=== PATIENT | male | born 1975 | race Caucasian/White ===

== ENCOUNTER 2017-07-14 14:15 | Inpatient (IN) | payer MEDICAID ==
[~2017-07-14] VITALS: Ht 193 cm; Wt 90.3 kg
[2017-07-14 14:25] VITALS: BP 98/58
[2017-07-14] MEDS ORDERED: Pantoprazole Inj IV ONE (14:30)
[2017-07-14] MEDS ORDERED: LORazepam Inj 2mg/ml 1ml IV ONE ×2 (14:30→19:30)
--- NOTE | 2017-07-14 14:31 | Emergency Room Report ---
History of Present Illness General Chief Complaint: General Complaint Source: Patient, EMS Present Illness HPI Patient presents with feeling that is about to seize. He was last sober last year. He drinks every day. His last drink was just before calling paramedics. He's been vomiting. He didn't see any blood. He's also had melanotic stools. He's never had a GI bleed in the past. Been many years since his last seizure. He is worried that he is withdrawing at this time. He has some epigastric pain. It's intermittent and not present at the moment. The patient denies cirrhosis. He also denies suicidal or homicidal ideation. Allergies: Coded Allergies: No Known Allergies (Unverified , 07/14/17) Patient History Past Medical History: see triage record Social History: Reports: smoking, alcohol use Social History Narrative Reviewed Nursing Documentation: PMH: Agreed; PSxH: Agreed Review of Systems All Other Systems: negative except mentioned in HPI Physical Exam Vital Signs Date Time Temp Pulse Resp B/P (MAP) Pulse Ox O2 Delivery O2 Flow Rate FiO2 07/14/17 13:53 98.2 150 20 98/58 100 Room Air 98.2 Sp02 EP Interpretation: reviewed, normal General Appearance: well appearing, no apparent distress, GCS 15 Head: normocephalic Eyes: bilateral eye PERRL, bilateral eye conjunctivae pale, bilateral eye scleral icterus ENT: moist mucus membranes Neck: supple Respiratory: lungs clear, normal breath sounds Cardiovascular #1: regular rate, rhythm Cardiovascular #2: 2+ radial (R) Gastrointestinal: normal inspection, normal bowel sounds, no mass, non- distended, no guarding, no rebound, tenderness - epigastric Musculoskeletal: back normal, gait/station normal, normal range of motion Neurologic: alert, oriented x3, grossly normal Psychiatric: anxious Skin: warm/dry, pallor Procedures Critical Care Time Critical Care Time Total Critical Care Time: 45 min bedside evaluation and treatment excludes procedures (EKG). Reason for critical care: GI bleed, hemorrhagic shock, alcohol withdrawal Possible complications: hypotension, hypertension, TN, shock, arrhythmias, metabolic acidosis, end organ damage, respiratory failure. Interventions: ativan, protonix, IV hydration, transfusion, repeat evaluations Course: Patient with vomit blood and melena and alcohol withdrawal. Tachycardia and fluid resuscitation initiated. Also treated for abdominal pain and withdrawal. H/H critically low. Discussed with patient risk and benefits of transfusion. Blood begun. Discussed with admitting MD and also GI senior solutions consultant. Consultations: nursing staff, EMS, family, blood bank, admitting MD and GI senior solutions consultant Performed by: Dr. Page Tolerated well condition = serious Medical Decision Making Diagnostic Impression: Primary Impression: UGI bleed Additional Impressions: Critical anemia Alcohol abuse Elevated lactic acid level Hemorrhagic shock ER Course Patient presents with alcohol withdrawal symptoms and melanotic stools. His exam has scleral icterus which suggests that he has liver disease. Differential includes esophageal varices, gastritis, peptic ulcer disease amongst others. He is also at risk for withdrawing. There's been no seizure activity. There is concern of possible coagulopathy. The patient will be evaluated with EKG, chest x-ray and abdominal films and labs. He'll be treated with Ativan, Zofran, Protonix. The patient will need to be admitted to the hospital. EKG with ST, no injury. CXR clear. Abd paucity gas. H/H critically low. Lactate high (hemorrhagic shock). INR normal. LFTs min elevated. Normal platelets. Blood ordered. Contacted Dr. Dsouza for admission. Blood transfusing. C/O abd pain. No guarding. Epigastric. Morphine repeat. C/O shakes. ativan repeated. Contact Dr. Torres for consultation. Admit SDU. Laboratory Tests Test 07/14/17 14:33 07/14/17 15:14 07/14/17 16:20 07/14/17 16:36 Sodium Level 139 MMOL/L (136-145) Potassium Level 4.4 MMOL/L (3.5-5.1) Chloride Level 101 MMOL/L (98-107) Carbon Dioxide Level 23 MMOL/L (21-32) Anion Gap 15 mmol/L (5-15) Blood Urea Nitrogen 40 mg/dL (7-18) H Creatinine 0.7 MG/DL (0.55-1.30) Estimate Glomerular Filtration Rate > 60 mL/min (>60) Glucose Level 167 MG/DL (74-106) H Lactic Acid Level 4.10 mmol/L (0.4-2.0) H 2.40 mmol/L (0.66-2.22) H Calcium Level 8.4 MG/DL (8.5-10.1) L Magnesium Level 1.3 MG/DL (1.8-2.4) L Total Bilirubin 0.4 MG/DL (0.2-1.0) Aspartate Amino Transferase (AST) 42 U/L (15-37) H Alanine Aminotransferase (ALT) 54 U/L (12-78) Alkaline Phosphatase 45 U/L (46-116) L Total Creatine Kinase 150 U/L (26-308) Troponin I 0.003 ng/mL (0.000-0.056) Total Protein 6.3 G/DL (6.4-8.2) L Albumin 3.1 G/DL (3.4-5.0) L Globulin 3.2 g/dL Albumin/Globulin Ratio 1.0 (1.0-2.7) Lipase 116 U/L (73-393) Serum Alcohol 130 mg/dL White Blood Count 6.6 K/UL (4.8-10.8) Red Blood Count 2.11 M/UL (4.70-6.10) L Hemoglobin 6.9 G/DL (14.2-18.0) *L Hematocrit 19.9 % (42.0-52.0) L Mean Corpuscular Volume 95 FL (80-99) Mean Corpuscular Hemoglobin 32.7 PG (27.0-31.0) H Mean Corpuscular Hemoglobin Concent 34.5 G/DL (32.0-36.0) Red Cell Distribution Width 12.6 % (11.6-14.8) Platelet Count 170 K/UL (150-450) Mean Platelet Volume 6.3 FL (6.5-10.1) L Neutrophils (%) (Auto) % (45.0-75.0) Lymphocytes (%) (Auto) % (20.0-45.0) Monocytes (%) (Auto) % (1.0-10.0) Eosinophils (%) (Auto) % (0.0-3.0) Basophils (%) (Auto) % (0.0-2.0) Neutrophils % (Manual) Pending Lymphocytes % (Manual) Pending Platelet Estimate Pending Platelet Morphology Pending Prothrombin Time 11.4 SEC (9.30-11.50) Prothrombin Time INR 1.1 (0.9-1.1) PTT 24 SEC (23-33) Urine Color Roxy Urine Appearance Clear Urine pH 6 (4.5-8.0) Urine Specific [place] 1.010 (1.005-1.035) Urine Protein Negative (NEGATIVE) Urine Glucose (UA) Negative (NEGATIVE) Urine Ketones 1+ (NEGATIVE) H Urine Occult Blood Negative (NEGATIVE) Urine Nitrite Negative (NEGATIVE) Urine Bilirubin Negative (NEGATIVE) Urine Ictotest Negative Urine Urobilinogen Normal MG/DL (0.0-1.0) Urine Leukocyte Esterase Negative (NEGATIVE) Urine Opiates Screen Negative (NEGATIVE) Urine Barbiturates Screen Negative (NEGATIVE) Phencyclidine (PCP) Screen Negative (NEGATIVE) Urine Amphetamines Screen Negative (NEGATIVE) Urine Benzodiazepines Screen Negative (NEGATIVE) Urine Cocaine Screen Negative (NEGATIVE) Urine Marijuana (THC) Screen Negative (NEGATIVE) EKG Diagnostic Results Rate: tachycardiac ST Segments: no acute changes Rhythm Strip Diag. Results EP Interpretation: yes Rhythm: no PVC's, no ectopy, other - st Chest X-Ray Diagnostic Results Chest X-Ray Diagnostic Results : Chest X-Ray Ordered: Yes # of Views/Limited/Complete: 1 View Indication: Other EP Interpretation: Yes Interpretation: no consolidation, no effusion, no pneumothorax Impression: No acute disease Electronically Signed by: Electronically signed by Momo Page MD Other X-Ray Diagnostic Results Other X-Ray Diagnostic Results : X-Ray ordered: Abdomen # of Views/Limited Vs Complete: 1 View Indication: Other EP Interpretation: Yes Interpretation: nonspecific bowel gas, no sbo, other - Foreign body Impression: Other Electronically Signed by: Electronically signed by Momo Page MD Last Vital Signs Date Time Temp Pulse Resp B/P (MAP) Pulse Ox O2 Delivery O2 Flow Rate FiO2 07/15/17 00:28 98.9 07/14/17 20:20 113 21 128/78 100 Room Air Status: improved Disposition: ADMITTED INPATIENT Condition: Critical Scripts No Active Prescriptions or Reported Meds Momo Page M.D. Jul 14, 2017 14:31
--- NOTE | 2017-07-14 15:05 | Diagnostic Imaging Report ---
EXAM: XR Chest, 1 View CLINICAL HISTORY: ABD PAIN TECHNIQUE: Frontal view of the chest. COMPARISON: No relevant prior studies available. FINDINGS: Limitations: The right costophrenic angle is partially excluded from view. Lungs: Unremarkable. The lungs appear clear. No confluent pulmonary opacities. Pleural space: Unremarkable. No pneumothorax. Heart: Unremarkable. No cardiomegaly. Mediastinum: Unremarkable. Bones/joints: Remote healed left midclavicular fracture. IMPRESSION: No acute findings.
--- NOTE | 2017-07-14 15:08 | Diagnostic Imaging Report ---
EXAM: XR Abdomen, 2 Views CLINICAL HISTORY: ABD PAIN TECHNIQUE: Frontal view of the abdomen/pelvis with upright view of the abdomen. COMPARISON: No relevant prior studies available. FINDINGS: Intraperitoneal space: No evidence of free air under the diaphragm. Gastrointestinal tract: Unremarkable bowel gas pattern. No abnormal distention of large or small bowel loops. No luminal air fluid levels. No evidence of pneumatosis intestinalis, pneumoperitoneum, or portal venous gas. Renal shadows obscured by overlying bowel gas. No suspicious calcifications in the abdomen or pelvis. Bones/joints: Unremarkable. Soft tissues: Nonspecific metallic radiodensities in the central pelvis, possibly a zipper, likely from the patient's clothing. IMPRESSION: 1. Nonspecific, nonobstructive bowel gas pattern. 2. Metallic radiodensities in the central pelvis, possibly a zipper, likely from the patient's clothing.
[2017-07-14 15:13] LABS: ANION GAP 15 mmol/L (5-15); BLOOD UREA NITROGEN 40 mg/dL (7-18); CALCIUM 8.4 MG/DL (8.5-10.1); CARBON DIOXIDE 23 MMOL/L (21-32); CHLORIDE 101 MMOL/L (98-107); CREATININE 0.7 MG/DL (0.55-1.30); POTASSIUM 4.4 MMOL/L (3.5-5.1); SODIUM 139 MMOL/L (136-145)
[2017-07-14 15:17] LABS: ALANINE AMINOTRANSFERASE 54 U/L (12-78); ALBUMIN 3.1 G/DL (3.4-5.0); ALKALINE PHOSPHATASE 45 U/L (46-116); ASPARTATE AMINO TRANSFERASE 42 U/L (15-37); BILIRUBIN,TOTAL 0.4 MG/DL (0.2-1.0); CREATINE KINASE 150 U/L (26-308)
[2017-07-14 15:38] LABS: HEMATOCRIT 19.9 % (42.0-52.0); MEAN CORPUSCULAR VOLUME 95 FL (80-99); PLATELET COUNT 170 K/UL (150-450); RED BLOOD COUNT 2.11 M/UL (4.70-6.10); RED CELL DISTRIBUTION WIDTH 12.6 % (11.6-14.8); WHITE BLOOD COUNT 6.6 K/UL (4.8-10.8)
[2017-07-14 15:44] LABS: INR 1.1 (0.9-1.1)
[2017-07-14 16:00] VITALS: BP 117/66
[2017-07-14 16:02] LABS: HEMOGLOBIN 6.9 G/DL (14.2-18.0)
[2017-07-14 16:50] LABS: APPEARANCE,URINE CLEAR; BILIRUBIN, URINE NEGATIVE (NEGATIVE); COLOR,URINE AMBER; GLUCOSE, URINE (UA) NEGATIVE (NEGATIVE); KETONES,URINE 1+ (NEGATIVE); LEUKOCYTE ESTERASE ,URINE NEGATIVE (NEGATIVE); NITRITE,URINE NEGATIVE (NEGATIVE); PH,URINE 6 (4.5-8.0); PROTEIN,URINE NEGATIVE (NEGATIVE); UROBILINOGEN,URINE NORMAL MG/DL (0.0-1.0)
[2017-07-14] MEDS ORDERED: Morphine Sulfate 4mg/ml Inj IVP ONE (17:00)
[2017-07-14] MEDS ORDERED: Morphine Sulfate 4mg/ml Inj IVP STA (18:22)
[2017-07-14 19:45] VITALS: BP 120/81
[2017-07-14 20:20] VITALS: BP 128/78
[2017-07-14] MEDS: Morphine Sulfate 4mg/ml Inj IVP PRN (23:00)
[2017-07-15] VITALS (10 sets, daily range): BP systolic 112–139; BP diastolic 68–82
[2017-07-15] MEDS: Morphine Sulfate 4mg/ml Inj IVP PRN ×6 (00:28→22:59)
[2017-07-15] MEDS ORDERED: Pantoprazole Inj IV SCH (09:00)
--- NOTE | 2017-07-15 09:11 | General Progress Note ---
Assessment/Plan Problem List: (1) Elevated lactic acid level ICD Codes: R79.89 - Other specified abnormal findings of blood chemistry SNOMED: 1951399 (2) UGI bleed ICD Codes: K92.2 - Gastrointestinal hemorrhage, unspecified SNOMED: 37242839 (3) Alcohol abuse ICD Codes: F10.10 - Alcohol abuse, uncomplicated SNOMED: 20307701 Assessment/Plan protonix transfuse to keep HGB above 7 banana bag ivf plan EGD in am Subjective ROS Limited/Unobtainable: Yes Allergies: Coded Allergies: No Known Allergies (Unverified , 07/14/17) Subjective vomited blood yesterday Objective Last 24 Hour Vital Signs Date Time Temp Pulse Resp B/P (MAP) Pulse Ox O2 Delivery O2 Flow Rate FiO2 07/15/17 08:00 88 07/15/17 04:40 98.2 101 122/75 98 98.2 07/15/17 03:45 91 07/15/17 00:28 98.9 07/15/17 00:00 106 07/14/17 23:30 98.9 07/14/17 20:20 98.9 113 21 128/78 100 Room Air 98.9 07/14/17 20:05 99.0 98 20 120/81 100 Room Air 99.0 07/14/17 19:45 99.0 107 20 120/81 100 Room Air 99.0 07/14/17 18:33 98.2 07/14/17 17:15 98.2 07/14/17 16:00 98.2 109 20 117/66 100 Room Air 98.2 07/14/17 14:25 98.2 127 20 98/58 100 Room Air 98.2 07/14/17 13:53 98.2 150 20 98/58 100 Room Air 98.2 Intake and Output 07/14/17 07/15/17 19:00 07:00 Intake Total 0 ml 1250 ml Balance 0 ml 1250 ml Intake Oral 0 ml Blood Product 750 ml Other 500 ml # Voids 3 # Bowel Movements 8 Laboratory Tests 07/14/17 14:33: Sodium Level 139, Potassium Level 4.4, Chloride Level 101, Carbon Dioxide Level 23, Anion Gap 15, Blood Urea Nitrogen 40H, Creatinine 0.7, Estimat Glomerular Filtration Rate > 60, Glucose Level 167H, Lactic Acid Level 4.10H, Calcium Level 8.4L, Magnesium Level 1.3L, Total Bilirubin 0.4, Aspartate Amino Transf ( AST/SGOT) 42H, Alanine Aminotransferase (ALT/SGPT) 54, Alkaline Phosphatase 45L , Total Creatine Kinase 150, Troponin I 0.003, Total Protein 6.3L, Albumin 3.1L , Globulin 3.2, Albumin/Globulin Ratio 1.0, Lipase 116, Serum Alcohol 130 07/14/17 15:14: White Blood Count 6.6, Red Blood Count 2.11L, Hemoglobin 6.9*L, Hematocrit 19.9L , Mean Corpuscular Volume 95, Mean Corpuscular Hemoglobin 32.7H, Mean Corpuscular Hemoglobin Concent 34.5, Red Cell Distribution Width 12.6, Platelet Count 170, Mean Platelet Volume 6.3L, Neutrophils (%) (Auto) , Lymphocytes (%) ( Auto) , Monocytes (%) (Auto) , Eosinophils (%) (Auto) , Basophils (%) (Auto) , Differential Total Cells Counted 100, Neutrophils % (Manual) 81H, Lymphocytes % (Manual) 10L, Monocytes % (Manual) 8, Eosinophils % (Manual) 1, Basophils % ( Manual) 0, Band Neutrophils 0, Platelet Estimate Adequate, Platelet Morphology Normal, Hypochromasia 2+, Anisocytosis 1+, Prothrombin Time 11.4, Prothromb Time International Ratio 1.1, Activated Partial Thromboplast Time 24 07/14/17 16:20: Lactic Acid Level 2.40H 07/14/17 16:36: Urine Color Roxy, Urine Appearance Clear, Urine pH 6, Urine Specific [place] 1.010, Urine Protein Negative, Urine Glucose (UA) Negative, Urine Ketones 1+H, Urine Occult Blood Negative, Urine Nitrite Negative, Urine Bilirubin Negative, Urine Ictotest Negative, Urine Urobilinogen Normal, Urine Leukocyte Esterase Negative, Urine Opiates Screen Negative, Urine Barbiturates Screen Negative, Phencyclidine (PCP) Screen Negative, Urine Amphetamines Screen Negative, Urine Benzodiazepines Screen Negative, Urine Cocaine Screen Negative, Urine Marijuana (THC) Screen Negative Height (Feet): 6 Height (Inches): 4.00 Weight (Pounds): 200 General Appearance: no apparent distress EENT: normal ENT inspection Neck: supple Cardiovascular: normal rate Respiratory/Chest: decreased breath sounds Abdomen: normal bowel sounds, non tender, soft Extremities: non-tender Roldan Torres MD Jul 15, 2017 09:11
[2017-07-15] MEDS: Pantoprazole 80 MG in NS 250 ML IV SCH ×2 (10:35→19:21)
[2017-07-15] MEDS: Metoclopramide 10mg/2ml Inj IVP SCH ×3 (10:35→21:02)
[2017-07-15] MEDS: Folic Acid 1 MG, Magnesium Sulfate 2,000 MG, Multivitamin - 12 Injection 10 ML in NS w/... IV SCH (11:15)
--- NOTE | 2017-07-15 11:31 | History & Physical ---
History and Physical History & Physicial hp DICTATED #[id number] Len Dsouza MD Jul 15, 2017 11:31
[2017-07-15] MEDS: Thiamine HCl 100 MG in D5W 110 ML IVPB SCH (11:53)
[2017-07-15 14:17] LABS: HEMATOCRIT 17.9 % (42.0-52.0); HEMOGLOBIN 6.3 G/DL (14.2-18.0); MEAN CORPUSCULAR VOLUME 89 FL (80-99); PLATELET COUNT 126 K/UL (150-450); RED BLOOD COUNT 2.02 M/UL (4.70-6.10); WHITE BLOOD COUNT 4.3 K/UL (4.8-10.8)
[2017-07-15] MEDS ORDERED: Tubing IV Secondary IV ONE (17:18)
[2017-07-15] MEDS ORDERED: NS 500ML ONE (17:18)
[2017-07-15] MEDS ORDERED: Tubing Blood Filter IV ONE (17:18)
--- NOTE | 2017-07-15 21:00 | History and Physical Report ---
DATE OF ADMISSION: 07/14/2017 CHIEF COMPLAINT: The patient was feeling dizzy, lightheaded, and had black stools. HISTORY OF PRESENT ILLNESS: This is a 42-year-old white male with history of alcohol abuse since age 22. The patient was sober last year. However in February of this year, started drinking again. He usually drinks about a bottle of vodka every day. In the past few days prior to admission, he was feeling sick and lightheaded, and on the date of admission he went to the bathroom. He became very dizzy. He noticed black stools. This happened again and he went to the bathroom again, could hardly walk, had to crawl, and finally paramedics were called. The patient was brought into the emergency room, he was diagnosed with acute GI bleed and severe anemia. His hematocrit was 19.9 with a hemoglobin of 6.9 upon admission. Overnight, the patient received 3 units of packed red blood cells and the patient was getting now 2 units of fresh frozen plasma. At this point, his last INR was 1.4. PAST MEDICAL HISTORY: The patient was diagnosed with alcoholic liver disease about four years ago. He was on drug rehab, but as mentioned, he started drinking again this year. He had 1 episode of seizure while he was in drug rehabilitation, but other than that his past medical history unremarkable. SOCIAL HISTORY: Occasional smoking, history of alcohol abuse as mentioned. The patient has a girlfriend. The patient was before and has also a daughter in [place]. ALLERGIES: No known drug allergies. REVIEW OF SYSTEMS: Noncontributory except above. PHYSICAL EXAMINATION: GENERAL: The patient is a 42-year-old male, in no acute distress. VITAL SIGNS: Blood pressure is 116/71, pulse is 88, temperature 98.1. HEENT: Pale conjunctiva. Somewhat icteric sclerae. NECK: Supple. LUNGS: Clear to auscultation. HEART: S1, S2 without murmurs or rubs. ABDOMEN: Soft and nontender. EXTREMITIES: No cyanosis or edema. LABORATORY FINDINGS: The CBC shows a WBC of 6.6, hematocrit is 19.9, hemoglobin 6.9, platelets 170,000. The chemistry panel shows a serum sodium of 139, potassium 4.4, chloride 101, CO2 23,, creatinine 0.7, blood sugar is 167, and calcium is 8.4. Magnesium 1.3. AST 42 and ALT 54. Lipase is 116. Total bilirubin was 0.4. ASSESSMENT: This is a 42-year-old male, who was admitted with GI bleed, possibly upper gastrointestinal, it could be from the esophageal varices or alcohol related gastritis. He was severely anemic. He was transfused. He likely has also alcoholic liver disease. He has hypomagnesemia as a result of his alcohol consumption. PLAN: As mentioned, the patient received 3 units of packed red blood cells. His CBC will be followed closely. Additional blood transfusion will be given if necessary. The patient was seen by Dr. Torres in GI consultation. The EGD is planned for tomorrow. The patient will receive IV magnesium and he was advised to stop alcohol and he understands the consequences. Thank you very much. Len Dsouza M.D. DR: DEWEY JOB#: [id number] CC: MARIO
[2017-07-16] VITALS (10 sets, daily range): BP systolic 102–138; BP diastolic 64–97
[2017-07-16] MEDS: Metoclopramide 10mg/2ml Inj IVP SCH (02:47)
[2017-07-16] MEDS: Morphine Sulfate 4mg/ml Inj IVP PRN ×5 (02:51→20:45)
[2017-07-16] MEDS: Pantoprazole 80 MG in NS 250 ML IV SCH (05:26)
[2017-07-16] MEDS ORDERED: Atropine Inj 1mg/10ml Syr IV PRN (06:45)
[2017-07-16] MEDS ORDERED: Midazolam 2mg/2ml Inj IVP PRN (06:45)
[2017-07-16] MEDS ORDERED: fentaNYL 100 mcg/2 mL IV PRN (06:45)
[2017-07-16] MEDS ORDERED: DiphenhydrAMINE 50mg/ml Inj IVP PRN (06:45)
[2017-07-16 06:47] LABS: MEAN CORPUSCULAR VOLUME 90 FL (80-99); PLATELET COUNT 127 K/UL (150-450); RED BLOOD COUNT 2.13 M/UL (4.70-6.10); RED CELL DISTRIBUTION WIDTH 13.7 % (11.6-14.8); WHITE BLOOD COUNT 4.5 K/UL (4.8-10.8)
--- NOTE | 2017-07-16 06:49 | Anethesia Preoperative Eval ---
Anesthesia Pre-op PMH/ROS General Date of Evaluation: Jul 16, 2017 Time of Evaluation: 06:47 Anesthesiologist: ayden ASA Score: ASA 3 Mallampati Score Class I : Soft palate, uvula, fauces, pillars visible Class II: Soft palate, uvula, fauces visible Class III: Soft palate, base of uvula visible Class IV: Only hard plate visible Mallampati Classification: Class II Surgeon: dany Diagnosis: ugib Surgical Procedure: ercp Social History: current smoker Family History: no anesthesia problems Allergies: Coded Allergies: No Known Allergies (Unverified , 07/14/17) Medications: see eMAR Past Medical History Neurologic/Psychiatric: Reports: depression/anxiety Hematology/Immune: Reports: other - hemorrhagic shock, hematemesis Anesthesia Pre-op Phys. Exam Physician Exam Last Vital Signs Date Time Temp Pulse Resp B/P (MAP) Pulse Ox O2 Delivery O2 Flow Rate FiO2 07/16/17 04:00 90 07/16/17 04:00 98.3 20 126/78 98 Room Air 98.3 Constitutional: NAD Neurologic: CN 2-12 intact Cardiovascular: RRR Respiratory: CTA Gastrointestinal: S/NT/ND Airway Exam Mallampati Score: Class II MO: full Neck: supple TMD: 2fb ROM: full Teeth: missing, loose Anesthesia Pre-op A/P Labs Hematology Test 07/15/17 13:45 07/16/17 04:45 White Blood Count 4.3 K/UL (4.8-10.8) L Pending Red Blood Count 2.02 M/UL (4.70-6.10) L Pending Hemoglobin 6.3 G/DL (14.2-18.0) *L Pending Hematocrit 17.9 % (42.0-52.0) L Pending Mean Corpuscular Volume 89 FL (80-99) Pending Mean Corpuscular Hemoglobin 31.4 PG (27.0-31.0) H Pending Mean Corpuscular Hemoglobin Concent 35.4 G/DL (32.0-36.0) Pending Red Cell Distribution Width 14.0 % (11.6-14.8) Pending Platelet Count 126 K/UL (150-450) L Pending Mean Platelet Volume 6.5 FL (6.5-10.1) Pending Neutrophils (%) (Auto) % (45.0-75.0) Pending Lymphocytes (%) (Auto) % (20.0-45.0) Pending Monocytes (%) (Auto) % (1.0-10.0) Pending Eosinophils (%) (Auto) % (0.0-3.0) Pending Basophils (%) (Auto) % (0.0-2.0) Pending Differential Total Cells Counted 100 Neutrophils % (Manual) 62 % (45-75) Lymphocytes % (Manual) 31 % (20-45) Monocytes % (Manual) 6 % (1-10) Eosinophils % (Manual) 1 % (0-3) Basophils % (Manual) 0 % (0-2) Band Neutrophils 0 % (0-8) Platelet Estimate Decreased L Platelet Morphology Normal Hypochromasia 1+ Anisocytosis 1+ Coagulation Test 07/16/17 04:45 Prothrombin Time Pending Prothromb Time International Ratio Pending Chemistry Test 07/16/17 04:45 Sodium Level Pending Potassium Level Pending Chloride Level Pending Carbon Dioxide Level Pending Blood Urea Nitrogen Pending Creatinine Pending Estimat Glomerular Filtration Rate Pending Glucose Level Pending Calcium Level Pending Magnesium Level Pending Risk Assessment & Plan Assessment: asa3 Plan: mac Status Change Before Surgery: No Pre-Antibiotics Drug: Ritu Lake MD Jul 16, 2017 06:49
[2017-07-16 07:05] LABS: ANION GAP 5 mmol/L (5-15); BLOOD UREA NITROGEN 22 mg/dL (7-18); CALCIUM 7.4 MG/DL (8.5-10.1); CARBON DIOXIDE 27 MMOL/L (21-32); CHLORIDE 108 MMOL/L (98-107); CREATININE 0.7 MG/DL (0.55-1.30); POTASSIUM 4.1 MMOL/L (3.5-5.1); SODIUM 140 MMOL/L (136-145)
[2017-07-16 07:14] LABS: HEMOGLOBIN 6.6 G/DL (14.2-18.0)
[2017-07-16] MEDS ORDERED: NS 500ML IVPB ONE (07:55)
[2017-07-16] MEDS ORDERED: Lidocaine 1% MPF 10mg/ml 5ml ONE (08:00)
[2017-07-16] MEDS ORDERED: Propofol 200mg/20ml IV ONE (08:00)
--- NOTE | 2017-07-16 08:07 | Pre-Procedure Note/Attestation ---
Pre-Procedure Note/Attestation Complete Prior to Procedure Planned Procedure: not applicable Procedure Narrative: egd Indications for Procedure Pre-Operative Diagnosis: GIB Attestation I attest that I discussed the nature of the procedure; its benefits; risks and complications; and alternatives (and the risks and benefits of such alternatives ), prior to the procedure, with the patient (or the patient's legal artist representative). I attest that, if there was a reasonable possibility of needing a blood transfusion, the patient (or the patient's legal artist representative) was given the [facility] standardized written summary, pursuant to the Edilberto Francesca Blood Safety Act ([place] Health and Safety Code # 1645, as amended). I attest that I re-evaluated the patient just prior to the surgery and that there has been no change in the patient's H&P, except as documented below: Roldan Torres MD Jul 16, 2017 08:07
--- NOTE | 2017-07-16 08:20 | Endoscopy Procedure Note ---
Endoscopy Procedure Note General Indication for Procedure: gib Procedures Performed: EGD Operative Findings/Diagnosis: du Specimen: yes Pt Tolerated Procedure Well: Yes Estimated Blood Loss: none Anesthesia Anesthesiologist: ayden Anesthesia: MAC Inserted Devices Implant(s) used?: No GI Core Measures 50 yrs or older w/o bx or poly: Not Applicable 10yrs. F/U not recommended: Not Applicable Roldan Torres MD Jul 16, 2017 08:20
--- NOTE | 2017-07-16 10:44 | Immediate Post-Op Evaluation ---
Immediate Post-Op Evalulation Immediate Post-Op Evalulation Procedure: egd w/bx Date of Evaluation: Jul 16, 2017 Time of Evaluation: 08:34 IV Fluids: 200ml 0.9ns Blood Products: none Estimated Blood Loss: negligible Blood Pressure Systolic: 119 Blood Pressure Diastolic: 84 Pulse Rate: 84 Respiratory Rate: 18 O2 Sat by Pulse Oximetry: 98 Temperature (Fahrenheit): 97.7 Pain Score (1-10): 0 Nausea: No Vomiting: No Patient Status: awake, reacts, patent Hydration Status: adequate Drug: Ritu Lake MD Jul 16, 2017 10:44
--- NOTE | 2017-07-16 10:45 | 48 Hour Post Anesthesia Eval ---
Post Anesthesia Evaluation Procedure: egd w/bx Date of Evaluation: Jul 16, 2017 Time of Evaluation: 08:36 Blood Pressure Systolic: 126 0: 85 Pulse Rate: 86 Respiratory Rate: 18 Temperature (Fahrenheit): 97.7 O2 Sat by Pulse Oximetry: 98 Airway: patent Nausea: No Vomiting: No Pain Intensity: 0 Hydration Status: adequate Cardiopulmonary Status: stable Mental Status/LOC: patient returned to baseline Post-Anesthesia Complications: none Follow-up care needed: N/A Ritu Hernandez MD Jul 16, 2017 10:45
[2017-07-16] MEDS: Folic Acid 1 MG, Magnesium Sulfate 2,000 MG, Multivitamin - 12 Injection 10 ML in NS w/... IV SCH (11:07)
[2017-07-16] MEDS: Thiamine HCl 100 MG in D5W 110 ML IVPB SCH (11:08)
--- NOTE | 2017-07-16 11:15 | Procedure Note ---
DATE OF PROCEDURE: 07/16/2017 SURGEON: Roldan Torres M.D. ANESTHESIOLOGIST: Dr. Carter. REFERRING PHYSICIAN: Len Dsouza M.D. PROCEDURE: Upper endoscopy with biopsy. ANESTHESIA: Per Dr. Carter. INSTRUMENT: Olympus adult flexible upper endoscope. INDICATION: GI bleeding. The procedure, risks, benefits, and possible consequences, including hemorrhage, aspiration, perforation and infection, and alternative treatments, were explained to the patient/legal guardian by Dr. Roldan Torres and the patient/legal guardian understood and accepted these risks. DESCRIPTION OF PROCEDURE: After informed consent was obtained and the patient was adequately sedated, Olympus upper endoscope was advanced from the mouth to the second portion of the duodenum and retroflexion was performed in the stomach. The patient had evidence of duodenal ulcer at the junction of the duodenal bulb and second portion of the duodenum. The ulcer measured roughly less than 1 cm, no adherent clot, no visible vessel. The patient had evidence of hiatal hernia, small. The patient had evidence of gastritis. Random biopsy from antrum and body was obtained to rule out H. pylori infection. The patient tolerated the procedure well without any complication. SUMMARY OF FINDINGS: 1. Duodenal ulcer. 2. Gastritis. 3. Hiatal hernia. RECOMMENDATIONS: Start diet. Follow hemoglobin and hematocrit. Transfuse 1 more unit of packed RBC today. Follow up biopsy results and treat for H. pylori if positive. The patient is okay to be discharged today after blood transfusion with PPI twice a day and follow up as an outpatient. I want to thank Dr. Len Dsouza for this kind referral. Roldan Torres M.D. DR: Eliceo JOB#: [id number] CC:
[2017-07-16] MEDS ORDERED: Tubing IV Blood Pump IV ONE (15:41)
[2017-07-16] MEDS ORDERED: Tubing IV Secondary IV ONE ×2 (15:41→17:00)
[2017-07-16] MEDS ORDERED: NS 500ML ONE ×2 (15:41→17:00)
[2017-07-16] MEDS: LORazepam Inj 2mg/ml 1ml IV PRN ×2 (15:56→21:53)
[2017-07-16] MEDS ORDERED: Tubing Blood Filter IV ONE (17:00)
[2017-07-16] MEDS ORDERED: Morphine Sulfate 4mg/ml Inj IVP PRN (22:45)
[2017-07-17] VITALS: BP 120/73
[2017-07-17] MEDS ORDERED: LORazepam Inj 2mg/ml 1ml IV PRN (02:15)
[2017-07-17 07:14] LABS: ANION GAP 4 mmol/L (5-15); BLOOD UREA NITROGEN 11 mg/dL (7-18); CARBON DIOXIDE 28 MMOL/L (21-32); CHLORIDE 108 MMOL/L (98-107); CREATININE 0.8 MG/DL (0.55-1.30); POTASSIUM 4.3 MMOL/L (3.5-5.1); SODIUM 140 MMOL/L (136-145)
[2017-07-17 07:28] LABS: HEMATOCRIT 21.1 % (42.0-52.0); HEMOGLOBIN 7.4 G/DL (14.2-18.0); MEAN CORPUSCULAR VOLUME 90 FL (80-99); PLATELET COUNT 149 K/UL (150-450); RED BLOOD COUNT 2.34 M/UL (4.70-6.10); RED CELL DISTRIBUTION WIDTH 13.7 % (11.6-14.8); WHITE BLOOD COUNT 3.9 K/UL (4.8-10.8)
[2017-07-17 08:00] VITALS: BP 123/70
[2017-07-17] MEDS ORDERED: Thiamine HCl 100 MG in D5W 110 ML IVPB SCH (10:15)
[2017-07-17] MEDS ORDERED: Folic Acid 1 MG, Magnesium Sulfate 2,000 MG, Multivitamin - 12 Injection 10 ML in NS w/... IV SCH (10:15)
[2017-07-17] MEDS ORDERED: PROTONIX40 MG ORAL (11:27)
[2017-07-17 12:00] VITALS: BP 132/74
[2017-07-17] MEDS ORDERED: Tubing IV Secondary IV ONE (13:04)
--- NOTE | 2017-07-17 14:16 | Cardiology Report ---
APPROVED REPORT EKG Measurement Heart [id number] [place] [id number] Sinus tachycardia Otherwise normal ECG
--- NOTE | 2017-07-17 14:33 | GI Progress Note ---
Assessment/Plan Status: stable Status Narrative Discussed with Dr. Torres. Assessment/Plan SUMMARY OF FINDINGS: 1. Duodenal ulcer. 2. Gastritis. 3. Hiatal hernia. RECOMMENDATIONS: okay for DC per GI standpoint Start diet. Follow hemoglobin and hematocrit. Transfuse 1 more unit of packed RBC today. Follow up biopsy results and treat for H. pylori if positive. PPI BID fu with PCP Subjective Gastrointestinal/Abdominal: Reports: no symptoms Objective Last 24 Hour Vital Signs Date Time Temp Pulse Resp B/P (MAP) Pulse Ox O2 Delivery O2 Flow Rate FiO2 07/17/17 12:00 97.1 76 18 132/74 100 Room Air 97.1 07/17/17 08:00 97.9 69 18 123/70 100 Room Air 97.9 07/17/17 07:03 98.4 07/17/17 00:00 98.4 87 18 120/73 100 Room Air 98.4 07/16/17 21:15 97.4 07/16/17 20:45 97.4 07/16/17 20:00 86 07/16/17 20:00 98.3 82 20 128/75 100 Room Air 98.3 07/16/17 16:00 83 07/16/17 16:00 97.4 83 20 127/76 99 Room Air 97.4 Intake and Output 07/16/17 07/17/17 19:00 07:00 Intake Total 1958.3 ml 250 ml Output Total 1250 ml Balance 708.3 ml 250 ml Intake Oral 650 ml IV Total 1308.3 ml Tube Feeding 250 ml Output Urine Total 1250 ml Estimated Blood Loss 0 ml # Voids 2 Laboratory Tests Test 07/17/17 06:00 White Blood Count 3.9 K/UL (4.8-10.8) L Red Blood Count 2.34 M/UL (4.70-6.10) L Hemoglobin 7.4 G/DL (14.2-18.0) L Hematocrit 21.1 % (42.0-52.0) L Mean Corpuscular Volume 90 FL (80-99) Mean Corpuscular Hemoglobin 31.7 PG (27.0-31.0) H Mean Corpuscular Hemoglobin Concent 35.2 G/DL (32.0-36.0) Red Cell Distribution Width 13.7 % (11.6-14.8) Platelet Count 149 K/UL (150-450) L Mean Platelet Volume 6.2 FL (6.5-10.1) L Neutrophils (%) (Auto) % (45.0-75.0) Lymphocytes (%) (Auto) % (20.0-45.0) Monocytes (%) (Auto) % (1.0-10.0) Eosinophils (%) (Auto) % (0.0-3.0) Basophils (%) (Auto) % (0.0-2.0) Differential Total Cells Counted 100 Neutrophils % (Manual) 44 % (45-75) L Lymphocytes % (Manual) 41 % (20-45) Monocytes % (Manual) 7 % (1-10) Eosinophils % (Manual) 6 % (0-3) H Basophils % (Manual) 2 % (0-2) Band Neutrophils 0 % (0-8) Platelet Estimate Decreased L Platelet Morphology Normal Hypochromasia 3+ Spherocytes 2+ Sodium Level 140 MMOL/L (136-145) Potassium Level 4.3 MMOL/L (3.5-5.1) Chloride Level 108 MMOL/L (98-107) H Carbon Dioxide Level 28 MMOL/L (21-32) Anion Gap 4 mmol/L (5-15) L Blood Urea Nitrogen 11 mg/dL (7-18) Creatinine 0.8 MG/DL (0.55-1.30) Estimat Glomerular Filtration Rate > 60 mL/min (>60) Glucose Level 121 MG/DL (74-106) H Calcium Level 8.0 MG/DL (8.5-10.1) L Height (Feet): 6 Height (Inches): 4.00 Weight (Pounds): 199 General Appearance: WD/WN, no apparent distress, alert Cardiovascular: normal rate Respiratory/Chest: normal breath sounds, no respiratory distress Abdominal Exam: normal bowel sounds, non tender, soft Extremities: normal range of motion, non-tender Sara Frazier NP Jul 17, 2017 14:33
--- NOTE | 2017-07-18 13:02 | Discharge Summary ---
Discharge Summary Discharge Summary _ DATE OF ADMISSION: 07/14/2017 DATE OF DISCHARGE: 07/17/2017 REASON FOR ADMISSION: 42 years old male with history of alcohol abuse , presented for evaluation. He felt like he was about to seize and came for evaluation to ED. Patient admitted to drinking every day , last drink just before he called paramedics. He also had been vomiting, but no blood in vomitus . He noted melena in stools. He denied any history of GI bleeding in the past. Vital signs in emergency room revealed tachycardia with heart rate 150. EKG revealed sinus tachycardia, no acute ischemic changes. Blood pressure was on the low side -98/68 . Hemoglobin -6.9 hematocrit -19.9 with MCV of 95. Magnesium -1.3 Lactic acid - 4.1; lipase within normal limits -116 . Serum alcohol level -130; urine toxicology screen was negative. INR within normal limits , LFT minimally elevated. Chest x-ray revealed no acute cardio pulmonary pathology. Abdominal x-ray was unremarkable. Patient admitted with diagnosis of hemorrhagic shock, upper GI bleeding ,acute anemia, ETOH abuse ,hypomagnesemia, lactic acidosis. CONSULTANTS: GI specialist [facility] COURSE: Patient admitted to [facility]. Patient started on IV fluids/banana bag. Patient received total of 6 units of packed red blood cells and 2 units of fresh frozen plasma.. Hemoglobin and hematocrit were closely monitored with goal to keep hemoglobin above 7. INR was stable. Magnesium was replaced and closely followed. Hypomagnesemia was secondary to alcohol abuse. GI consult was requested. Patient subsequently undergone EGD with biopsy on . EGD revealed duodenal ulcer ,gastritis, hiatal hernia. No evidence of esophageal varices. Pathology showed minimal gastritis and no evidence of H. pylori infection . GI recommended to treat with PPI bid, and start on diet slowly as tolerated. Patient was counseled on alcohol cessation. Anxiolytics were on board as needed. No evidence of seizure activity. Pain management was addressed , and pain was controlled. Blood pressure improved. Magnesium 2.1 prior to discharge. Hemoglobin- 7.4 hematocrit- 21.1 prior to discharge Patient was stable for discharge home with outpatient follow-up with primary care provider in one week . Patient was strongly encouraged on abstinence from alcohol. Prescription for PPI provided. FINAL DIAGNOSES: Hemorrhagic shock Upper GI bleeding Status post EGD with biopsy on 07/16 with findings of duodenal ulcer, gastritis, likely alcohol induced, hiatal hernia Acute anemia of blood loss ,requiring blood transfusion Hypomagnesemia-resolved Alcohol abuse Lactic acidosis DISCHARGE MEDICATIONS: See Medication Reconciliation list. DISCHARGE INSTRUCTIONS: Patient was discharged home. Patient to follow-up with the primary care provider in one week. Patient was counseled on abstinence from ETOH. Educational materials provided regarding AA meetings. I have been assigned to dictate discharge summary for this account. I was not involved in the patient's management. Miroslava Mario NP Jul 18, 2017 13:02
== END 2017-07-17 13:05 | disposition home or self-care (01) | DRG 241 ==
LOC: EDBD 14:15 → EMR 14:37 → 2W 15:01 → EDBEDREQSVC 16:57 → EDBEDREQ 16:57 → 2W 20:56 → 4W 07-16 21:05
PROC: 30233N1 Transfusion of Nonautologous Red Blood Cells into Peripheral Vein, Percutaneous Approach (ICD-10-PCS; 2017-07-14)
PROC: 30233K1 Transfusion of Nonautologous Frozen Plasma into Peripheral Vein, Percutaneous Approach (ICD-10-PCS; 2017-07-15)
PROC: 0DB78ZX Excision of Stomach, Pylorus, Via Natural or Artificial Opening Endoscopic, Diagnostic (ICD-10-PCS; 2017-07-16)
PROC: 0DB68ZX Excision of Stomach, Via Natural or Artificial Opening Endoscopic, Diagnostic (ICD-10-PCS; principal; 2017-07-16 08:11)
DX: K29.21 Alcoholic gastritis with bleeding (principal); R57.8 Other shock; D62 Acute posthemorrhagic anemia; E83.42 Hypomagnesemia; E87.2 Acidosis; F10.20 Alcohol dependence, uncomplicated; K44.9 Diaphragmatic hernia without obstruction or gangrene; F17.200 Nicotine dependence, unspecified, uncomplicated; K26.4 Chronic or unspecified duodenal ulcer with hemorrhage
CPT/HCPCS: 36415; 71045; 74018; 80048; 80053; 80307; 80329; 81003; 82550; 83605; 83690; 83735; 84484; 85007; 85025; 85610; 85730; 86850; 86900; 86901; 86920; 86927; 93005; 94003; 94150; 99285; 99291; J2405; J2765

== ENCOUNTER 2017-11-10 20:28 | Emergency (ER) | payer MEDICAID, OTHER ==
[~2017-11-10] VITALS: Ht 193 cm; Wt 95.3 kg
[~2017-11-10 20:28] MED LIST: PROTONIX40 MG ORAL
[2017-11-10 20:40] VITALS: BP 141/104
[2017-11-10] MEDS ORDERED: Thiamine HCl 100 MG in D5W 55 ML IVPB STA (20:51)
--- NOTE | 2017-11-10 21:18 | Emergency Room Report ---
History of Present Illness General Chief Complaint: Alcohol Intoxication Source: Patient Present Illness HPI This patient c/o drinking heavily today, daily heavy drinker. No trauma, no vomiting, no fever. [place] he might "seize" so came to ED. No abd pain, no headache. He was admitted here in July with GI bleed. At that time he was very tachy. Hx. limited due to intoxication. GF says she was worried today was a repeat of July, possible GI bleed. Allergies: Coded Allergies: No Known Allergies (Unverified , 07/14/17) Nursing Documentation-[facility] Past Medical History: No Stated History Hx Cardiac Problems: No Hx Cancer: No Hx Gastrointestinal Problems: Yes Hx Neurological Problems: No Review of Systems Constitutional: Reports: see HPI Eye: Reports: no symptoms ENT: Reports: no symptoms Respiratory: Reports: no symptoms Cardiovascular: Reports: no symptoms Gastrointestinal: Reports: no symptoms Genitourinary: Reports: no symptoms Musculoskeletal: Reports: no symptoms Skin: Reports: no symptoms Psychiatric: Reports: no symptoms Neurological: Reports: no symptoms Endocrine: Reports: no symptoms Hematologic/Lymphatic: Reports: no symptoms Allergic: Reports: no symptoms All Other Systems: negative except mentioned in HPI Physical Exam Vital Signs Date Time Temp Pulse Resp B/P (MAP) Pulse Ox O2 Delivery O2 Flow Rate FiO2 11/10/17 20:39 98.3 112 18 141/104 94 Room Air 98.2 Sp02 EP Interpretation: reviewed, normal General Appearance: normal inspection, well appearing, no apparent distress, alert, GCS 15, non-toxic, other - poor hygiene, no vomiting Head: normocephalic, atraumatic Eyes: bilateral eye normal inspection, bilateral eye PERRL, bilateral eye EOMI ENT: normal ENT inspection, hearing grossly normal, normal pharynx, no angioedema, normal voice, moist mucus membranes, other - poor dentition Neck: normal inspection, full range of motion, supple, no meningismus, no bony tend Respiratory: normal inspection, lungs clear, normal breath sounds, no rhonchi, no respiratory distress, no retraction, no accessory muscle use, no wheezing Cardiovascular #1: normal inspection, regular rate, rhythm, no edema Gastrointestinal: normal inspection, normal bowel sounds, non tender, soft, no mass, non-distended Musculoskeletal: gait/station normal, normal range of motion Neurologic: normal inspection, alert, oriented x3, responsive, motor strength/ tone normal Psychiatric: normal inspection, judgement/insight normal, memory normal Suicide Risk Assessment: Suicidal Ideation: No Had intent to initiate attempt: No Pt's plan for suicide attempt: No Has means to complete attempt: No Skin: normal inspection, normal color, no rash, warm/dry Medical Decision Making Diagnostic Impression: Primary Impression: Alcoholism ER Course I understand GF concern; pt. has secured a spot in a rehab in three days hence and she is past her point and he is still drinking. However, there is no acute medical need at this time. Last Vital Signs Date Time Temp Pulse Resp B/P (MAP) Pulse Ox O2 Delivery O2 Flow Rate FiO2 11/10/17 20:39 98.3 112 18 141/104 94 Room Air 98.2 Disposition: HOME, SELF-CARE Condition: Stable Referrals: VAN [facility],REFERRING (PCP) Patient Instructions: Alcohol Use Disorder Saúl Rasmussen M.D. Nov 10, 2017 21:18
[2017-11-10 21:32] LABS: BASOPHILS % (AUTO) 1.9 % (0.0-2.0); EOSINOPHILS % (AUTO) 1.4 % (0.0-3.0); HEMATOCRIT 48.9 % (42.0-52.0); HEMOGLOBIN 16.3 G/DL (14.2-18.0); LYMPHOCYTES % (AUTO) 27.2 % (20.0-45.0); MEAN CORPUSCULAR VOLUME 92 FL (80-99); MONOCYTES % (AUTO) 8.2 % (1.0-10.0); NEUTROPHILS % (AUTO) 61.4 % (45.0-75.0); PLATELET COUNT 257 K/UL (150-450); RED CELL DISTRIBUTION WIDTH 14.3 % (11.6-14.8); WHITE BLOOD COUNT 5.3 K/UL (4.8-10.8)
[2017-11-10 22:01] VITALS: BP 112/87
[2017-11-10 22:11] LABS: ANION GAP 12 mmol/L (5-15); BLOOD UREA NITROGEN 14 mg/dL (7-18); CALCIUM 8.8 MG/DL (8.5-10.1); CARBON DIOXIDE 27 MMOL/L (21-32); CHLORIDE 101 MMOL/L (98-107); CREATININE 0.8 MG/DL (0.55-1.30); SODIUM 140 MMOL/L (136-145)
[2017-11-10 22:19] LABS: ALANINE AMINOTRANSFERASE 822 U/L (12-78); ALBUMIN 4.3 G/DL (3.4-5.0); ALBUMIN/GLOBULIN RATIO 1.2 (1.0-2.7); ALKALINE PHOSPHATASE 85 U/L (46-116); ASPARTATE AMINO TRANSFERASE 926 U/L (15-37); BILIRUBIN,TOTAL 0.7 MG/DL (0.2-1.0)
== END 2017-11-10 22:00 | disposition home or self-care (01) ==
LOC: EMR 20:59
DX: F10.20 Alcohol dependence, uncomplicated (principal)
CPT/HCPCS: 80053; 80329; 83690; 83735; 85025; 96361; 96365; 96367; 96375; 99284